=== PATIENT | female | born 1950 | race Caucasian/White ===

== ENCOUNTER 2022-05-27 10:14 | Day surgery (SDC) | payer MEDICARE, OTHER ==
[~2022-05-27] VITALS: Ht 170.2 cm; Wt 71.0 kg
[~2022-05-27 10:14] MED LIST: GABA300 PO; RANI150 PO; SERT50 PO; SYNTHROID25 MCG PO; ZOLP5 PO
[2022-05-27] MEDS ORDERED: ERGO400 (11:04)
[2022-05-27] MEDS ORDERED: PRESERVISION A1 EAC2 (11:04)
[2022-05-27] MEDS ORDERED: MULVITA (11:04)
[2022-05-27] MEDS ORDERED: VALS80 (11:04)
--- NOTE | 2022-05-27 13:27 | NUR ---
05/27/22 132Staci Schmidt RETURNED TO PT IN ROOM.
== END 2022-05-27 13:27 | disposition home or self-care (01) ==
LOC: ORSCSDS 10:14
PROVIDERS: Internal Medicine Gastroenterology
PROC: 0DJ08ZZ Inspection of Upper Intestinal Tract, Via Natural or Artificial Opening Endoscopic (ICD-10-PCS; principal; 2022-05-27 12:15)
DX: R13.10 Dysphagia, unspecified (principal); K20.90 Esophagitis, unspecified without bleeding; K22.2 Esophageal obstruction; Z98.84 Bariatric surgery status; Z79.899 Other long term (current) drug therapy
CPT/HCPCS: C1726; J2704; J7120

== ENCOUNTER → 2022-12-28 | Outpatient (CLI) | payer MEDICARE, OTHER ==
[~2022-12-28] MED LIST changes: +ACYC200 PO; +Diovan160 MG PO; +ERGO400; +LEVSOD25 PO; +MONT10T PO; +MULVITA; +PEPCID40 MG PO; +PRESERVISION A1 EAC2; +SERT100 PO; +VALS80; +[UNRECOGNIZED DRUG - OTHER]
[2022-12-29 10:43] LABS: Candida species (DNA Probe) Positive (NEGATIVE); G. vaginalis (DNA Probe) Negative (NEGATIVE); T. vaginalis (DNA Probe) Negative (NEGATIVE)
== END | disposition home or self-care (01) ==
LOC: LAB 16:58 → LAB SHORT 16:58
PROVIDERS: Physician Assistant Medical
DX: N76.0 Acute vaginitis (principal)
CPT/HCPCS: 87480; 87510; 87660

== ENCOUNTER 2023-06-22 08:09 | Day surgery (SDC) | payer MEDICARE, OTHER ==
[~2023-06-22] VITALS: Ht 170.2 cm; Wt 78.8 kg
[2023-06-22 10:09] VITALS: BP 114/70
== END 2023-06-22 10:14 | disposition home or self-care (01) ==
LOC: ORSCSDS 08:09
PROVIDERS: Internal Medicine Gastroenterology
PROC: 0DBL8ZX Excision of Transverse Colon, Via Natural or Artificial Opening Endoscopic, Diagnostic (ICD-10-PCS; principal; 2023-06-22 09:15)
PROC: 0DBP8ZX Excision of Rectum, Via Natural or Artificial Opening Endoscopic, Diagnostic (ICD-10-PCS; principal; 2023-06-22 09:15)
DX: Z12.11 Encounter for screening for malignant neoplasm of colon (principal); Z86.010 Personal history of colon polyps; Z83.719 Family history of colon polyps, unspecified; D12.3 Benign neoplasm of transverse colon; K62.1 Rectal polyp; K64.8 Other hemorrhoids; K57.30 Diverticulosis of large intestine without perforation or abscess without bleeding; I10 Essential (primary) hypertension; E11.9 Type 2 diabetes mellitus without complications; J44.9 Chronic obstructive pulmonary disease, unspecified; E03.9 Hypothyroidism, unspecified; Z98.84 Bariatric surgery status; Z87.891 Personal history of nicotine dependence; Z79.899 Other long term (current) drug therapy
CPT/HCPCS: 88305; J2704; J7120

== ENCOUNTER → 2023-11-29 | Outpatient (CLI) | payer MEDICARE, OTHER ==
[2023-11-30 12:15] LABS: Stool Occult Blood Guaiac 1 Neg (Neg)
[2023-11-30 12:16] LABS: Stool Occult Blood Guaiac 2 Neg (Neg)
[2023-11-30 12:17] LABS: Stool Occult Blood Guaiac 3 Neg (Neg)
== END | disposition home or self-care (01) ==
LOC: LAB 11:08 → LAB SHORT 11:08 → LAB FUT 11-23 14:00 → EDSTATUS 11-23 14:00
PROVIDERS: Internal Medicine
DX: E61.1 Iron deficiency (principal)
CPT/HCPCS: 82270

== ENCOUNTER 2024-06-29 14:54 | Emergency (ER) | payer MEDICARE, OTHER ==
[~2024-06-29] VITALS: Ht 170.2 cm; Wt 77.1 kg
[2024-06-29 15:15] VITALS: BP 145/81
[2024-06-29] MEDS ORDERED: Diphth,Pertuss(Acell),Tet Vac 0.5 ML VIAL IM ONE (15:20)
[2024-06-29] MEDS ORDERED: Trimethoprim/Sulfamethoxazole DS Tab PO ONE (16:55)
[2024-06-29] MEDS ORDERED: Bactrim Ds Tab1 EACH PO (16:58)
[2024-06-29] MEDS ORDERED: Diflucan100 MG PO (16:58)
== END 2024-06-29 17:07 | disposition home or self-care (01) ==
LOC: ER 14:54
DX: L03.116 Cellulitis of left lower limb (principal); E03.9 Hypothyroidism, unspecified
CPT/HCPCS: 93971; 99283-25; A9270